=== PATIENT | female | born 1980 | race Caucasian/White ===

== ENCOUNTER 2017-10-02 01:20 | Emergency (ER) | payer OTHER ==
[2017-10-02 01:35] VITALS: RESP 16; TEMP 97.4; O2SAT 100
[2017-10-02] MEDS ORDERED: ACETAMINOPHEN 500 MG 500 MG TAB PO ONE (01:59)
[2017-10-02] MEDS ORDERED: ACETAMINOPHEN 500 MG 500 MG TAB ONE (02:03)
[2017-10-02 02:05] LABS: APPEARANCE,URINE Clear; BILIRUBIN,URINE NEGATIVE (NEGATIVE); COLOR,URINE Yellow; GLUCOSE, URINE (UA) NEGATIVE (NEGATIVE); KETONES,URINE NEGATIVE (NEGATIVE); LEUKOCYTE ESTERASE ,URINE TRACE (NEGATIVE); NITRATE,URINE NEGATIVE (NEGATIVE); OCCULT BLOOD,URINE NEGATIVE (NEG-TRACE); PH,URINE 5.5; UROBILINOGEN,URINE 0.2 (0.2-1.0 EU)
[2017-10-02 02:09] LABS: BACTERIA 1+ (< 1+); CRYSTALS NEGATIVE (0-3 AVE/HPF); RBC,URINE 0-2 (0-3AV/HPF)
[2017-10-02 02:16] VITALS: BP 132/98; PULSE 89
== END 2017-10-02 02:12 | disposition home or self-care (01) ==
LOC: ED 01:20
DX: M54.5 Low back pain (principal); Z3A.20 20 weeks gestation of pregnancy; O24.410 Gestational diabetes mellitus in pregnancy, diet controlled
CPT/HCPCS: 81001; 84703; 87088; 99282